=== PATIENT | female | born 1985 ===

== ENCOUNTER 2020-01-28 15:51 | Inpatient (IN) | payer SELFPAY ==
[2020-01-28 17:27] LABS: BLOOD UREA NITROGEN,BUN 9 mg/dL (7.0-18.0); CARBON DIOXIDE,CO2 20.4 mmol/L (21.0-32.0); CHLORIDE,CL 104 mmol/L (98-107); GLUCOSE RANDOM 139 mg/dL (74-106); POTASSIUM,K 3.7 mmol/L (3.5-5.1); SODIUM,NA 135 mmol/L (136-145)
[2020-01-28] MEDS ORDERED: Carboprost Tromethamine 250 MCG/1 ML Amp IM PRN (20:46)
[2020-01-28] MEDS ORDERED: Lidocaine 1% 50 ML MDV INJECT PRN (20:46)
[2020-01-28] MEDS ORDERED: Butorphanol 1 MG/ML SDV IVPUSH PRN (20:46)
[2020-01-28] MEDS ORDERED: Misoprostol 200 MCG Tab PO PRN (20:46)
[2020-01-28] MEDS ORDERED: Nalbuphine 10 MG/1 ML Vial IVPUSH PRN (20:46)
[2020-01-28] MEDS ORDERED: Sodium Chloride 0.9% 10 ML Syringe FLUSH PRN (20:46)
[2020-01-28] MEDS ORDERED: Ondansetron 4 MG/2 ML SDV IVPUSH PRN (20:46)
[2020-01-28] MEDS ORDERED: Methylergonovine 0.2 MG/1 ML Amp IM PRN (20:46)
[2020-01-28] MEDS ORDERED: Sodium Chloride 0.9% 2.5 ML Syringe FLUSH PRN (20:46)
[2020-01-28] MEDS ORDERED: Misoprostol 25 MCG (1/4 of 100 MCG) Tab VAG PRN ×2 (20:46)
[2020-01-28] MEDS ORDERED: Terbutaline 1 MG/ML SDV SUBCUT PRN (20:46)
[2020-01-28] MEDS ORDERED: Misoprostol 25 MCG (1/4 of 100 MCG) Tab PO PRN (20:46)
[2020-01-28] MEDS ORDERED: Sodium Chloride 0.9% 10 ML SDV IV PRN (20:46)
[2020-01-28] MEDS ORDERED: Tranexamic Acid 1,000 MG in Sodium Chloride 0.9% 100 ML IV PRN (20:46)
[2020-01-28] MEDS ORDERED: Water For Irrigation,Sterile 1,000 ML Container IRR PRN (20:46)
[2020-01-28] MEDS ORDERED: Oxytocin/0.9 % Sodium Chloride 30 UNIT/500 ML BAG IV SCH ×2 (21:00)
[2020-01-28] MEDS ORDERED: hydrALAZINE 20 MG/ML SDV IVPUSH PRN (22:21)
[2020-01-28] MEDS ORDERED: Labetalol 100 MG/20 ML MDV IVPUSH PRN (22:21)
[2020-01-29] MEDS: Lactated Ringers 1,000 ML IV SCH ×2 (02:17→07:51)
[2020-01-29] MEDS ORDERED: Ropivacaine HCl/PF 100 ML ONE (06:45)
[2020-01-29] MEDS ORDERED: fentaNYL 100 MCG/2 ML SDV ONE (06:45)
[2020-01-29] MEDS ORDERED: Ropivacaine 0.2% PF 2 MG/ML 20 ML SDV ONE (06:45)
--- NOTE | 2020-01-29 07:29 | PCM.PREANE ---
Preanesthetic Assessment - Anesthesia/Transfusion/Family Hx Anesthesia History: Prior Anesthesia Without Reaction Family History of Anesthesia Reaction: No Transfusion History: No Prior Transfusion(s) Intubation History: Intubation other than for Surgery in past - Review of Systems General: No Symptoms Pulmonary: No Symptoms Cardiovascular: Other (Hx of elevated BP's.) Gastrointestinal: No Symptoms Neurological: No Symptoms Other: Reports: Anxiety - Physical Assessment NPO Status Date: 01/29/20 NPO Status Time: 06:00 (Clear liquids) Height: 1.63 m Weight: 80.739 kg ASA Class: 2 Mental Status: Alert & Oriented x3 Airway Class: Mallampati = 2 Dentition: Reports: Normal Dentition Thyro-Mental Finger Breadths: 3 Mouth Opening Finger Breadths: 3 ROM/Head Extension: Full Lungs: Clear to Auscultation Cardiovascular: Regular Rate - Lab Values: Laboratory Last Values WBC 9.10 K/uL (4.0-11.0) 01/28/20 16:31 RBC 4.71 M/uL (4.30-5.90) 01/28/20 16:31 Hgb 12.0 g/dL (12.0-16.0) 01/28/20 16:31 Hct 38.0 % (36.0-46.0) 01/28/20 16:31 MCV 80.7 fL (80.0-98.0) 01/28/20 16:31 MCH 25.5 pg (27.0-32.0) L 01/28/20 16:31 MCHC 31.6 g/dL (31.0-37.0) 01/28/20 16:31 RDW Std Deviation 47.5 fl (28.0-62.0) 01/28/20 16:31 RDW Coeff of Aureliano 16 % (11.0-15.0) H 01/28/20 16:31 Plt Count 299 K/uL (150-400) 01/28/20 16:31 MPV 10.70 fL (7.40-12.00) 01/28/20 16:31 Neut % (Auto) 81.0 % (48.0-80.0) H 01/28/20 16:31 Lymph % (Auto) 12.9 % (16.0-40.0) L 01/28/20 16:31 Berg[place] % (Auto) 5.8 % (0.0-15.0) 01/28/20 16:31 Eos % (Auto) 0.2 % (0.0-7.0) 01/28/20 16: Baso % (Auto) 0.1 % (0.0-1.5) 01/28/20 16: Neut # (Auto) 7.4 K/uL (1.4-5.7) H 01/28/20 16: Lymph # (Auto) 1.2 K/uL (0.6-2.4) 01/28/20 16: Berg[place] # (Auto) 0.5 K/uL (0.0-0.8) 01/28/20 16: Eos # (Auto) 0.0 K/uL (0.0-0.7) 01/28/20 16: Baso # (Auto) 0.0 K/uL (0.0-0.1) 01/28/20 16: Nucleated RBC % 0.3 /100WBC 01/28/20 16: Nucleated RBCs # 0 K/uL 01/28/20 16:31 Sodium 135 mmol/L (136-145) L 01/28/20 16:31 Potassium 3.7 mmol/L (3.5-5.1) 01/28/20 16: Chloride 104 mmol/L (98-107) 01/28/20 16: Carbon Dioxide 20.4 mmol/L (21.0-32.0) L 01/28/20 16: BUN 9 mg/dL (7.0-18.0) 01/28/20 16: Creatinine 0.5 mg/dL (0.6-1.0) L 01/28/20 16: Est Cr Clr Drug Dosing TNP 01/28/20 16:31 Estimated GFR (MDRD) > 60.0 ml/min 01/28/20 16:31 Glucose 139 mg/dL (74-106) H 01/28/20 16:31 Uric Acid 3.2 mg/dL (2.6-7.2) 01/28/20 16: Calcium 8.6 mg/dL (8.5-10.1) 01/28/20 16:31 Total Bilirubin 0.2 mg/dL (0.2-1.0) 01/28/20 16:31 AST 16 IU/L (15-37) 01/28/20 16:31 ALT 21 IU/L (14-63) 01/28/20 16:31 Alkaline Phosphatase 191 U/L (46-116) H 01/28/20 16:31 Total Protein 6.8 g/dL (6.4-8.2) 01/28/20 16:31 Albumin 2.5 g/dL (3.4-5.0) L 01/28/20 16:31 Globulin 4.3 g/dL (2.6-4.0) H 01/28/20 16:31 Albumin/Globulin Ratio 0.6 (0.9-1.6) L 01/28/20 16:31 Ur Random Creatinine 103.9 mg/dL 01/28/20 17:55 U Random Total Protein 42.3 mg/dL (<11.9) H 01/28/20 17:55 Protein/Creatinin Ratio 0.4 01/28/20 17:55 Blood Type O POSITIVE 01/28/20 16:31 Antibody Screen NEGATIVE 01/28/20 16:31 - Allergies Allergies/Adverse Reactions: Allergies Allergy/AdvReac Type Severity Reaction Status Date / Time No Known Allergies Allergy Verified 10/06/15 01:47 - Blood Blood Available: No Product(s) Available: None - Anesthesia Plan Free Text/Narrative:: Discussed through . Understands, permit signed, wishes to proceed. - Acknowledgements Anesthesia Type Planned: Epidural Pt an Appropriate Candidate for the Planned Anesthesia: Yes Alternatives and Risks of Anesthesia Discussed w Pt/Guardian: Yes Pt/Guardian Understands and Agrees with Anesthesia Plan: Yes Additional Comments: Acceptable candidate. Will dose slowly due to elevated BP. 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 Smoking Status *Q: Never Smoker Second Hand Smoke Exposure: No Recreational Drug Use History: No - HOME MEDS Home Medications: Home Meds Vit 90/Iron Fum/Folic [ Formula] 1 each PO DAILY 10/06/15 [ History] - CURRENT (IN HOUSE) MEDS Current Meds: Current Medications Butorphanol Tartrate (Stadol) 1 mg IVPUSH Q1H PRN PRN Reason: Pain Carboprost Tromethamine (Hemabate Ds) 250 mcg IM ASDIRECTED PRN PRN Reason: Post Hemorrhage Hydralazine HCl (Apresoline) 5 mg IVPUSH Q20M PRN PRN Reason: Hypertension Tranexamic Acid 1,000 mg/ (Sodium Chloride) 110 mls @ 660 mls/hr IV ONETIME PRN PRN Reason: Bleeding Lactated Ringer's (Ringers, Lactated) 1,000 mls @ 150 mls/hr IV ASDIRECTED A[place]EN Last Admin: 01/29/20 02:17 Dose: 150 mls/hr Oxytocin/Sodium Chloride (Oxytocin 30 Unit/500 Ml-Ns) 30 unit in 500 mls @ 555 mls/hr IV TITRATE [place] Oxytocin/Sodium Chloride (Oxytocin 30 Unit/500 Ml-Ns) 30 unit in 500 mls @ 2 mls/hr IV TITRATE A[place]EN; Protocol Last Titration: 01/29/20 04:53 Dose: 8 munits/min, 8 mls/hr Labetalol HCl (Normodyne) 20 mg IVPUSH Q10M PRN; Protocol PRN Reason: Hypertension Lidocaine HCl (Xylocaine 1%) 50 ml INJECT ONETIME PRN PRN Reason: Laceration repair Methylergonovine Maleate (Methergine) 0.2 mg IM ASDIRECTED PRN PRN Reason: Post Hemorrhage Misoprostol (Cytotec) 200 mcg PO ONETIME PRN PRN Reason: Post Hemorrhage Misoprostol (Cytotec) 25 mcg VAG ONETIME PRN PRN Reason: Cervical Ripening Last Admin: 01/28/20 21:45 Dose: 25 mcg Misoprostol (Cytotec) 25 mcg VAG Q4H PRN PRN Reason: Cervical Ripening Nalbuphine HCl (Nubain) 10 mg IVPUSH Q1H PRN PRN Reason: Pain (severe 7-10) Ondansetron HCl (Zofran) 4 mg IVPUSH Q4H PRN PRN Reason: Nausea/Vomiting Sodium Chloride (Saline Flush) 10 ml FLUSH ASDIRECTED PRN PRN Reason: Keep Vein Open Sodium Chloride (Saline Flush) 2.5 ml FLUSH ASDIRECTED PRN PRN Reason: Keep Vein Open Sodium Chloride (Normal Saline) 10 ml IV ASDIRECTED PRN PRN Reason: IV Use Sterile Water (Sterile Water For Irrigation) 1,000 ml IRR ASDIRECTED PRN PRN Reason: delivery Terbutaline Sulfate (Brethine) 0.25 mg SUBCUT ASDIRECTED PRN PRN Reason: Tacysystole Discontinued Medications Fentanyl (Sublimaze) Confirm Administered Dose 100 mcg .ROUTE .STK-MED ONE Stop: 01/29/20 06:46 Ropivacaine (Naropin 0.2%) Confirm Administered Dose 100 mls @ as directed .ROUTE .STK-MED ONE Stop: 01/29/20 06:46 Ropivacaine (Naropin 0.2%) Confirm Administered Dose 20 ml .ROUTE .STK-MED ONE Stop: 01/29/20 06:46
--- NOTE | 2020-01-29 07:54 | PCM.SN ---
- Free Text/Narrative Note: Requested for Labor Epidural , 37.5 weeks. Active labor, on Pitocin, pain 7 /10. Fluid bolus in progress. Discussed with via . ? answered. Permit signed. Procedure without issues. Pain 110 following bolus. Infusion started @ 07:40. VSS. FHT good. Tolerated well.
--- NOTE | 2020-01-29 16:22 | PCM.DEL ---
L & D Note - General Info Date of Service: 01/29/20 - Delivery Note Labor: Augmented by Oxytocin Delivery Outcome: Livebirth Delivery Method: Spontaneous Vaginal Delivery-Single Presentation: Left Occiput Anterior (GABRIELE) Nuchal Cord: None Anesthesia Type: Epidural Episiotomy Type: None Laceration: None Cord: 3 Vessels Estimated Blood Loss: 300 Resuscitation Needed: No Score 1 min: 8 Score 5 min: 9 Post Delivery Events: Shoulder Dystocia Second Stage Interventions: Reports: Pushing, McRobert's Position Delivery Comments (Free Text/Narrative):: Live Male delivered at 340pm weight 4060g Patient with shoulder dystocia After the delivery of the head at 1539 , turtle sign noted the McRobert and suprapubic maneuver done and released the shoulder time to delivery of body 340pm - General Info Date of Service: 01/29/20 - Patient Data Weight - Most Recent: 80.739 kg Lab Results Last 24 Hours: Laboratory Results - last 24 hr 01/28/20 01/28/20 01/28/20 Range/Units 16:31 16:31 16:31 WBC 9.10 (4.0-11.0) K/uL RBC 4.71 (4.30-5.90) M/uL Hgb 12.0 (12.0-16.0) g/dL Hct 38.0 (36.0-46.0) % MCV 80.7 (80.0-98.0) fL MCH 25.5 L (27.0-32.0) pg MCHC 31.6 (31.0-37.0) g/dL RDW Std Deviation 47.5 (28.0-62.0) fl RDW Coeff of Aureliano 16 H (11.0-15.0) % Plt Count 299 (150-400) K/uL MPV 10.70 (7.40-12.00) fL Neut % (Auto) 81.0 H (48.0-80.0) % Lymph % (Auto) 12.9 L (16.0-40.0) % Davie % (Auto) 5.8 (0.0-15.0) % Eos % (Auto) 0.2 (0.0-7.0) % Baso % (Auto) 0.1 (0.0-1.5) % Neut # (Auto) 7.4 H (1.4-5.7) K/uL Lymph # (Auto) 1.2 (0.6-2.4) K/uL Davie # (Auto) 0.5 (0.0-0.8) K/uL Eos # (Auto) 0.0 (0.0-0.7) K/uL Baso # (Auto) 0.0 (0.0-0.1) K/uL Nucleated RBC % 0.3 /100WBC Nucleated RBCs # 0 K/uL Sodium 135 L (136-145) mmol/L Potassium 3.7 (3.5-5.1) mmol/L Chloride 104 (98-107) mmol/L Carbon Dioxide 20.4 L (21.0-32.0) mmol/L BUN 9 (7.0-18.0) mg/dL Creatinine 0.5 L (0.6-1.0) mg/dL Est Cr Clr Drug Dosing TNP Estimated GFR (MDRD) > 60.0 ml/min Glucose 139 H (74-106) mg/dL Uric Acid 3.2 (2.6-7.2) mg/dL Calcium 8.6 (8.5-10.1) mg/dL Total Bilirubin 0.2 (0.2-1.0) mg/dL AST 16 (15-37) IU/L ALT 21 (14-63) IU/L Alkaline Phosphatase 191 H (46-116) U/L Total Protein 6.8 (6.4-8.2) g/dL Albumin 2.5 L (3.4-5.0) g/dL Globulin 4.3 H (2.6-4.0) g/dL Albumin/Globulin Ratio 0.6 L (0.9-1.6) Ur Random Creatinine mg/dL U Random Total Protein (<11.9) mg/dL Protein/Creatinin Ratio Blood Type O POSITIVE Antibody Screen NEGATIVE 01/28/20 Range/Units 17:55 WBC (4.0-11.0) K/uL RBC (4.30-5.90) M/uL Hgb (12.0-16.0) g/dL Hct (36.0-46.0) % MCV (80.0-98.0) fL MCH (27.0-32.0) pg MCHC (31.0-37.0) g/dL RDW Std Deviation (28.0-62.0) fl RDW Coeff of Aureliano (11.0-15.0) % Plt Count (150-400) K/uL MPV (7.40-12.00) fL Neut % (Auto) (48.0-80.0) % Lymph % (Auto) (16.0-40.0) % Davie % (Auto) (0.0-15.0) % Eos % (Auto) (0.0-7.0) % Baso % (Auto) (0.0-1.5) % Neut # (Auto) (1.4-5.7) K/uL Lymph # (Auto) (0.6-2.4) K/uL Davie # (Auto) (0.0-0.8) K/uL Eos # (Auto) (0.0-0.7) K/uL Baso # (Auto) (0.0-0.1) K/uL Nucleated RBC % /100WBC Nucleated RBCs # K/uL Sodium (136-145) mmol/L Potassium (3.5-5.1) mmol/L Chloride (98-107) mmol/L Carbon Dioxide (21.0-32.0) mmol/L BUN (7.0-18.0) mg/dL Creatinine (0.6-1.0) mg/dL Est Cr Clr Drug Dosing Estimated GFR (MDRD) ml/min Glucose (74-106) mg/dL Uric Acid (2.6-7.2) mg/dL Calcium (8.5-10.1) mg/dL Total Bilirubin (0.2-1.0) mg/dL AST (15-37) IU/L ALT (14-63) IU/L Alkaline Phosphatase (46-116) U/L Total Protein (6.4-8.2) g/dL Albumin (3.4-5.0) g/dL Globulin (2.6-4.0) g/dL Albumin/Globulin Ratio (0.9-1.6) Ur Random Creatinine 103.9 mg/dL U Random Total Protein 42.3 H (<11.9) mg/dL Protein/Creatinin Ratio 0.4 Blood Type Antibody Screen Med Orders - Current: Current Medications Butorphanol Tartrate (Stadol) 1 mg IVPUSH Q1H PRN PRN Reason: Pain Carboprost Tromethamine (Hemabate Ds) 250 mcg IM ASDIRECTED PRN PRN Reason: Post Hemorrhage Hydralazine HCl (Apresoline) 5 mg IVPUSH Q20M PRN PRN Reason: Hypertension Tranexamic Acid 1,000 mg/ (Sodium Chloride) 110 mls @ 660 mls/hr IV ONETIME PRN PRN Reason: Bleeding Lactated Ringer's (Ringers, Lactated) 1,000 mls @ 150 mls/hr IV ASDIRECTED [place]EN Last Admin: 01/29/20 07:51 Dose: 150 mls/hr Oxytocin/Sodium Chloride (Oxytocin 30 Unit/500 Ml-Ns) 30 unit in 500 mls @ 555 mls/hr IV TITRATE [place] Oxytocin/Sodium Chloride (Oxytocin 30 Unit/500 Ml-Ns) 30 unit in 500 mls @ 2 mls/hr IV TITRATE [place]; Protocol Last Titration: 01/29/20 15:59 Dose: 999 munits/min, 999 mls/hr Labetalol HCl (Normodyne) 20 mg IVPUSH Q10M PRN; Protocol PRN Reason: Hypertension Lidocaine HCl (Xylocaine 1%) 50 ml INJECT ONETIME PRN PRN Reason: Laceration repair Methylergonovine Maleate (Methergine) 0.2 mg IM ASDIRECTED PRN PRN Reason: Post Hemorrhage Misoprostol (Cytotec) 200 mcg PO ONETIME PRN PRN Reason: Post Hemorrhage Misoprostol (Cytotec) 25 mcg VAG ONETIME PRN PRN Reason: Cervical Ripening Last Admin: 01/28/20 21:45 Dose: 25 mcg Misoprostol (Cytotec) 25 mcg VAG Q4H PRN PRN Reason: Cervical Ripening Nalbuphine HCl (Nubain) 10 mg IVPUSH Q1H PRN PRN Reason: Pain (severe 7-10) Ondansetron HCl (Zofran) 4 mg IVPUSH Q4H PRN PRN Reason: Nausea/Vomiting Sodium Chloride (Saline Flush) 10 ml FLUSH ASDIRECTED PRN PRN Reason: Keep Vein Open Sodium Chloride (Saline Flush) 2.5 ml FLUSH ASDIRECTED PRN PRN Reason: Keep Vein Open Sodium Chloride (Normal Saline) 10 ml IV ASDIRECTED PRN PRN Reason: IV Use Sterile Water (Sterile Water For Irrigation) 1,000 ml IRR ASDIRECTED PRN PRN Reason: delivery Terbutaline Sulfate (Brethine) 0.25 mg SUBCUT ASDIRECTED PRN PRN Reason: Tacysystole Discontinued Medications Fentanyl (Sublimaze) Confirm Administered Dose 100 mcg .ROUTE .STK-MED ONE Stop: 01/29/20 06:46 Ropivacaine (Naropin 0.2%) Confirm Administered Dose 100 mls @ as directed .ROUTE .STK-MED ONE Stop: 01/29/20 06:46 Ropivacaine (Naropin 0.2%) Confirm Administered Dose 20 ml .ROUTE .STK-MED ONE Stop: 01/29/20 06:46 - Problem List & Annotations (1) Shoulder dystocia during labor and delivery, delivered SNOMED Code(s): 006283336, 269237078 Code(s): O66.0 - OBSTRUCTED LABOR DUE TO SHOULDER DYSTOCIA Status: Acute Current Visit: Yes - Problem List Review Problem List Initiated/Reviewed/Updated: Yes - Assessment Assessment:: 34yo P5 s/p PPDO
[2020-01-29] MEDS ORDERED: Ibuprofen 400 MG Tab PO PRN (16:24)
[2020-01-29] MEDS ORDERED: Witch Hazel Medicated Pads 40/Jar TOP PRN (16:24)
[2020-01-29] MEDS ORDERED: oxyCODONE 5 MG Tab PO PRN (16:24)
[2020-01-29] MEDS ORDERED: Acetaminophen 500 MG Tab PO PRN (16:24)
[2020-01-29] MEDS ORDERED: Lanolin 100% Cream 7 GM Tube TOP PRN (16:24)
[2020-01-29] MEDS ORDERED: Benzocaine/Menthol 20%-0.5% Spray 78 GM Cannister TOP PRN (16:24)
[2020-01-29] MEDS ORDERED: Docusate Sodium 100 MG Cap PO PRN (16:24)
[2020-01-29] MEDS ORDERED: Bisacodyl 10 MG Supp RECTAL PRN (16:24)
[2020-01-29] MEDS: Ibuprofen 800 MG Tab PO PRN (17:04)
[2020-01-29] MEDS: Acetaminophen 500 MG Tab PO PRN (17:05)
[2020-01-30] MEDS: Ibuprofen 800 MG Tab PO PRN (00:31)
[2020-01-30] MEDS: Acetaminophen 500 MG Tab PO PRN (05:26)
--- NOTE | 2020-01-30 07:57 | PCM.PNPP ---
- General Info Date of Service: 01/30/20 Subjective Update: 34yo p5 s/p PPD1 Denies any complains, , normal lochia Functional Status: Reports: Pain Controlled, Tolerating Diet, Ambulating, Urinating - Review of Systems General: Reports: No Symptoms HEENT: Reports: No Symptoms Pulmonary: Reports: No Symptoms Cardiovascular: Reports: No Symptoms Gastrointestinal: Reports: No Symptoms Genitourinary: Reports: No Symptoms Musculoskeletal: Reports: No Symptoms Skin: Reports: No Symptoms Neurological: Reports: No Symptoms Psychiatric: Reports: No Symptoms - General Info Date of Service: 01/30/20 - Patient Data Vital Signs - Most Recent: Last Vital Signs Temp 36.2 C 01/30/20 04:41 Pulse 72 01/30/20 04:41 Resp 14 01/30/20 04:41 BP 145/93 H 01/30/20 04:41 Pulse Ox 98 01/30/20 04:41 Weight - Most Recent: 80.739 kg I&O - Last 24 Hours: Intake & Output 01/29/20 01/30/20 01/30/20 22:59 06:59 14:59 Output Total 600 Balance -600 Lab Results - Last 24 Hours: Laboratory Results - last 24 hr 01/29/20 01/30/20 Range/Units 15:40 05:43 Hgb 10.0 L (12.0-16.0) g/dL Hct 31.3 L (36.0-46.0) % Cord ABG pH 7.354 (7.18-7.38) Cord ABG Base Excess -3 (-10--2) Cord VBG pH 7.356 (7.25-7.45) Cord VBG Base Excess -5 (-10--2) Med Orders - Current: Current Medications Acetaminophen (Tylenol Extra Strength) 500 mg PO Q4H PRN PRN Reason: Pain Acetaminophen (Tylenol Extra Strength) 1,000 mg PO Q4H PRN PRN Reason: Pain Last Admin: 01/30/20 05:26 Dose: 1,000 mg Benzocaine/Menthol (Dermoplast Pain Relief 20%-0.5% Manzanita) 78 gm TOP ASDIRECTED PRN PRN Reason: Perineal Comfort Measure Last Admin: 01/29/20 17:07 Dose: 1 canister Bisacodyl (Dulcolax) 10 mg RECTAL ONETIME PRN PRN Reason: Constipation Butorphanol Tartrate (Stadol) 1 mg IVPUSH Q1H PRN PRN Reason: Pain Carboprost Tromethamine (Hemabate Ds) 250 mcg IM ASDIRECTED PRN PRN Reason: Post Hemorrhage Docusate Sodium (Colace) 100 mg PO BID PRN PRN Reason: Constipation Last Admin: 01/29/20 17:06 Dose: 100 mg Emollient Ointment (Lansinoh Hpa) 0 gm TOP ASDIRECTED PRN PRN Reason: Sore Nipples Last Admin: 01/29/20 17:06 Dose: 7 gm Hydralazine HCl (Apresoline) 5 mg IVPUSH Q20M PRN PRN Reason: Hypertension Tranexamic Acid 1,000 mg/ (Sodium Chloride) 110 mls @ 660 mls/hr IV ONETIME PRN PRN Reason: Bleeding Lactated Ringer's (Ringers, Lactated) 1,000 mls @ 150 mls/hr IV ASDIRECTED [place] Last Admin: 01/29/20 07:51 Dose: 150 mls/hr Oxytocin/Sodium Chloride (Oxytocin 30 Unit/500 Ml-Ns) 30 unit in 500 mls @ 555 mls/hr IV TITRATE [place] Oxytocin/Sodium Chloride (Oxytocin 30 Unit/500 Ml-Ns) 30 unit in 500 mls @ 2 mls/hr IV TITRATE [place]; Protocol Last Titration: 01/29/20 15:59 Dose: 999 munits/min, 999 mls/hr Ibuprofen (Motrin) 400 mg PO Q4H PRN PRN Reason: Pain Ibuprofen (Motrin) 800 mg PO Q6H PRN PRN Reason: Pain Last Admin: 01/30/20 00:31 Dose: 800 mg Labetalol HCl (Normodyne) 20 mg IVPUSH Q10M PRN; Protocol PRN Reason: Hypertension Lidocaine HCl (Xylocaine 1%) 50 ml INJECT ONETIME PRN PRN Reason: Laceration repair Methylergonovine Maleate (Methergine) 0.2 mg IM ASDIRECTED PRN PRN Reason: Post Hemorrhage Misoprostol (Cytotec) 200 mcg PO ONETIME PRN PRN Reason: Post Hemorrhage Misoprostol (Cytotec) 25 mcg VAG ONETIME PRN PRN Reason: Cervical Ripening Last Admin: 01/28/20 21:45 Dose: 25 mcg Misoprostol (Cytotec) 25 mcg VAG Q4H PRN PRN Reason: Cervical Ripening Nalbuphine HCl (Nubain) 10 mg IVPUSH Q1H PRN PRN Reason: Pain (severe 7-10) Ondansetron HCl (Zofran) 4 mg IVPUSH Q4H PRN PRN Reason: Nausea/Vomiting Oxycodone HCl (Oxycodone) 5 mg PO Q2H PRN PRN Reason: Pain Sodium Chloride (Saline Flush) 10 ml FLUSH ASDIRECTED PRN PRN Reason: Keep Vein Open Sodium Chloride (Saline Flush) 2.5 ml FLUSH ASDIRECTED PRN PRN Reason: Keep Vein Open Sodium Chloride (Normal Saline) 10 ml IV ASDIRECTED PRN PRN Reason: IV Use Sterile Water (Sterile Water For Irrigation) 1,000 ml IRR ASDIRECTED PRN PRN Reason: delivery Terbutaline Sulfate (Brethine) 0.25 mg SUBCUT ASDIRECTED PRN PRN Reason: Tacysystole Witch Bharath (Tucks) 1 pad TOP ASDIRECTED PRN PRN Reason: comfort care Last Admin: 01/29/20 17:07 Dose: 1 tub Discontinued Medications Fentanyl (Sublimaze) Confirm Administered Dose 100 mcg .ROUTE .STK-MED ONE Stop: 01/29/20 06:46 Ropivacaine (Naropin 0.2%) Confirm Administered Dose 100 mls @ as directed .ROUTE .STK-MED ONE Stop: 01/29/20 06:46 Ropivacaine (Naropin 0.2%) Confirm Administered Dose 20 ml .ROUTE .STK-MED ONE Stop: 01/29/20 06:46 - Interaction Support Person: - Recovery Exam Fundal Tone: Firm Fundal Level: 1 Fingerbreadths Below Umbilicus Fundal Placement: Midline Lochia Amount: Small Lochia Color: Rubra/Red Perineum Description: Intact, Minimal Bruising/Swelling Bladder Status: Voiding Urinary Elimination: Voided - Exam General: Alert HEENT: Pupils Equal Neck: Supple Lungs: Clear to Auscultation Cardiovascular: Regular Rate, Regular Rhythm GI/Abdominal Exam: Normal Bowel Sounds Extremities: Normal Inspection Neurological: No New Focal Deficit - Problem List & Annotations (1) Shoulder dystocia during labor and delivery, delivered SNOMED Code(s): 673739462, [id number] Code(s): O66.0 - OBSTRUCTED LABOR DUE TO SHOULDER DYSTOCIA Status: Acute Current Visit: Yes - Problem List Review Problem List Initiated/Reviewed/Updated: Yes - My Orders Last 24 Hours: My Active Orders 01/29/20 16:24 Acetaminophen [Tylenol Extra Strength] 1,000 mg PO Q4H PRN Acetaminophen [Tylenol Extra Strength] 500 mg PO Q4H PRN Benzocaine/Menthol [Dermoplast Pain Relief 20%-0.5% [place]] 78 gm TOP ASDIRECTED PRN Docusate Sodium [Colace] 100 mg PO BID PRN Ibuprofen [Motrin] 400 mg PO Q4H PRN Ibuprofen [Motrin] 800 mg PO Q6H PRN Lanolin [Lansinoh HPA] See Dose Instructions TOP ASDIRECTED PRN bisacodyL [Dulcolax] 10 mg RECTAL ONETIME PRN oxyCODONE 5 mg PO Q2H PRN witch Bharath [Tucks] 1 pad TOP ASDIRECTED PRN Resuscitation Status Routine 01/29/20 16:25 Patient Status [ADT] Routine May Shower [RC] ASDIRECTED Up ad Kathleen [RC] ASDIRECTED Vital Signs [RC] PER UNIT ROUTINE Assess Lochia [WOMSER] Per Unit Routine Assess Uterine Involution [WOMSER] Per Unit Routine Peripheral IV Discontinue [OM.PC] Routine 01/29/20 Dinner Regular Diet [DIET] - Assessment Assessment:: 34yo P5 s/p PPD1, Normal lochia , - Plan Plan:: Discharge home Routine care
--- NOTE | 2020-01-30 08:08 | PCM48HPAN ---
Post Anesthesia Note - EVALUATION WITHIN 48HRS OF ANESTHETIC Vital Signs in Normal Range: Yes Patient Participated in Evaluation: Yes Respiratory Function Stable: Yes Airway Patent: Yes Cardiovascular Function Stable: Yes Hydration Status Stable: Yes Pain Control Satisfactory: Yes Nausea and Vomiting Control Satisfactory: Yes Mental Status Recovered: Yes Vital Signs: Last Vital Signs Temp 97.1 F 01/30/20 04:41 Pulse 72 01/30/20 04:41 Resp 14 01/30/20 04:41 BP 145/93 H 01/30/20 04:41 Pulse Ox 98 01/30/20 04:41
[2020-01-30 16:42] VITALS: BP 147/83; PULSE 77
--- NOTE | 2020-01-31 00:41 | OR ---
SURGEON: ANH KURTZ DATE OF PROCEDURE: 01/29/2020 PREOPERATIVE DIAGNOSIS: 34-year-old, 5, para 4, at 37 weeks 6 days, admitted for induction of labor secondary to gestational hypertension. POSTOPERATIVE DIAGNOSES: 34-year-old, 5, para 4, at 37 weeks 6 days, admitted for induction of labor secondary to gestational hypertension and shoulder dystocia status post. PROCEDURE: Vaginal delivery complicated by shoulder dystocia. ESTIMATED BLOOD LOSS: 300 mL. IV FLUIDS: Pitocin running. NOTES AND FINDINGS: A live male delivered at 1540, score is 8 and 9. Weight was 4060 g. BRIEF HISTORY: She is a 34-year-old, , 37 weeks 6 days, who came in complaining of contractions. She was noted to have elevated blood pressures, and she was kept for induction of labor. PIH labs were done, which was normal. DESCRIPTION OF PROCEDURE: Induction of labor and augmentation of labor was done with Pitocin. The patient made change. She was AROM'd and clear fluid was noted. She was on Pitocin. She became fully dilated. With the patient fully dilated, she was encouraged to push. After delivering the head, a turtle sign was noted, so Markos was done and suprapubic was done. The shoulder was released without any difficulty. Then, the body was delivered. was placed on the maternal abdomen. The cord was clamped and cut. The placenta was delivered via controlled cord traction. The perineum was inspected, noted to be intact. The patient tolerated the procedure well. All instrument and pad counts were correct x2. The patient was left in Labor and Delivery room in stable condition. CAROLYN / JEFE /[id number]
== END 2020-01-30 18:30 | disposition home or self-care (01) | DRG 807 ==
LOC: MW.OB 15:51 → MW.OBCHECK 15:51 → MW.OB 20:46 → MW.OBCHECK 20:46 → OBSVTOIN 01-29 16:25 → MW.OB 01-29 18:28
PROVIDERS: ADMIT Obstetrics & Gynecology; ATTEND Obstetrics & Gynecology
PROC: 10E0XZZ Delivery of Products of Conception, External Approach (ICD-10-PCS; principal; 2020-01-29)
PROC: 10907ZC Drainage of Amniotic Fluid, Therapeutic from Products of Conception, Via Natural or Artificial Opening (ICD-10-PCS; 2020-01-29)
PROC: 3E0R3BZ Introduction of Anesthetic Agent into Spinal Canal, Percutaneous Approach (ICD-10-PCS; 2020-01-29)
DX: O13.4 Gestational [pregnancy-induced] hypertension without significant proteinuria, complicating childbirth (principal); Z37.0 Single live birth; O66.0 Obstructed labor due to shoulder dystocia; Z3A.37 37 weeks gestation of pregnancy
CPT/HCPCS: 36415; 51702; 59025; 59409; 80053; 82570; 82803; 84156; 84550; 85014; 85018; 85025; 86592; 86593; 86850; 86900; 86901; A9270-GY; J2590; J7120

== ENCOUNTER 2020-02-10 16:07 | Inpatient (IN) | payer SELFPAY ==
[2020-02-10] MEDS ORDERED: Sodium Chloride 0.9% 10 ML Syringe FLUSH PRN (16:16)
[2020-02-10] MEDS ORDERED: Calcium Gluconate 10% 1 GM/10 ML SDV IV PRN (16:16)
[2020-02-10] MEDS ORDERED: Sodium Chloride 0.9% 2.5 ML Syringe FLUSH PRN (16:16)
[2020-02-10] MEDS ORDERED: Sodium Chloride 0.9% 10 ML SDV IV PRN (16:16)
[2020-02-10] MEDS ORDERED: Magnesium Sulfate/Water 4 GM in Premix Bag 1 BAG IV ONE (16:16)
[2020-02-10] MEDS ORDERED: hydrALAZINE 20 MG/ML SDV IVPUSH PRN (16:16)
[2020-02-10] MEDS ORDERED: Ibuprofen 600 MG Tab PO PRN (16:27)
[2020-02-10] MEDS ORDERED: Acetaminophen 500 MG Tab PO PRN (16:27)
[2020-02-10] MEDS ORDERED: Lactated Ringers 1,000 ML IV SCH (16:45)
[2020-02-10 17:37] LABS: BLOOD UREA NITROGEN,BUN 13 mg/dL (7.0-18.0); CARBON DIOXIDE,CO2 24.9 mmol/L (21.0-32.0); CHLORIDE,CL 102 mmol/L (98-107); GLUCOSE RANDOM 86 mg/dL (74-106); POTASSIUM,K 3.9 mmol/L (3.5-5.1); SODIUM,NA 138 mmol/L (136-145)
--- NOTE | 2020-02-10 17:41 | PCM.HP.2 ---
H&P History of Present Illness - General Date of Service: 02/10/20 Admit Problem/Dx: Admission Diagnosis/Problem Admission Diagnosis/Problem Hypertension, condition or complication Source of Information: Patient History Limitations: Reports: Language Barrier - History of Present Illness Initial Comments - Free Text/Narative: 34 yo status 01/30/20 who was admitted/induced for gestational hypertension. She had returned to OB clinic today for BP check given gestational hypertension. She denies headaches or visual changes. No chest pain or shortness of breath. Infant is doing well. Her lochia is minimal. She denies fever or chills. 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 Denies: Chest Pain, Palpitations, Lightheadedness Gastrointestinal: Reports: No Symptoms Genitourinary: Reports: No Symptoms Musculoskeletal: Reports: No Symptoms Skin: Reports: No Symptoms Psychiatric: Reports: No Symptoms Neurological: Reports: Headache (mild). Denies: Confusion, Dizziness, Numbness , Paresthesia, Seizure, Tingling, Tremors, Weakness Hematologic/Lymphatic: Reports: No Symptoms Immunologic: Reports: No Symptoms Exam - Exam Exam: See Below - Vital Signs Weight: 70.987 kg - Exam General: Alert, Oriented, 4 Neck: Trachea Midline Lungs: Clear to Auscultation, Normal Respiratory Effort Cardiovascular: Regular Rate, Regular Rhythm GI/Abdominal Exam: Normal Bowel Sounds, Soft Back Exam: No: CVA Tenderness (L), CVA Tenderness (R) Extremities: Pedal Edema (trace). No: Misael's Sign Skin: Warm, Dry, Intact Neurological: Cranial Nerves Intact, Reflexes Equal Bilateral Neuro Extensive - Mental Status: Alert, Oriented x3 Neuro Extensive - Motor, Sensory, Reflexes: CN II-XII Intact, Normal Reflexes DTR: 2+: Bicep (L), Bicep (R), Patella (L), Patella (R) Psychiatric: Alert, Normal Affect - Patient Data Lab Results Last 24 hrs: Laboratory Results - last 24 hr 02/10/20 02/10/20 Range/Units 16:38 17:04 WBC 12.99 H (4.0-11.0) K/uL RBC 5.08 (4.30-5.90) M/uL Hgb 13.2 (12.0-16.0) g/dL Hct 41.6 (36.0-46.0) % MCV 81.9 (80.0-98.0) fL MCH 26.0 L (27.0-32.0) pg MCHC 31.7 (31.0-37.0) g/dL RDW Std Deviation 48.7 (28.0-62.0) fl RDW Coeff of Aureliano 16 H (11.0-15.0) % Plt Count 507 H (150-400) K/uL MPV 9.60 (7.40-12.00) fL Nucleated RBC % 0.0 /100WBC Nucleated RBCs # 0 K/uL Urine Color YELLOW Urine Appearance CLEAR Urine pH 6.5 (5.0-8.0) Ur Specific [place] 1.015 (1.001-1.035) Urine Protein NEGATIVE (NEGATIVE) mg/dL Urine Glucose (UA) NEGATIVE (NEGATIVE) mg/dL Urine Ketones NEGATIVE (NEGATIVE) mg/dL Urine Occult Blood TRACE-INTACT H (NEGATIVE) Urine Nitrite NEGATIVE (NEGATIVE) Urine Bilirubin NEGATIVE (NEGATIVE) Urine Urobilinogen 1.0 (<2.0) EU/dL Ur Leukocyte Esterase NEGATIVE (NEGATIVE) Urine RBC 1-2 (0-2/HPF) Urine WBC 0-1 (0-5/HPF) Ur Epithelial Cells RARE (NONE-FEW) Urine Bacteria RARE (NEGATIVE) Result Diagrams: 02/10/20 17:04 - Problem List (1) Preeclampsia in period SNOMED Code(s): 243011992, 286658352 ICD Code: O14.95 - UNSPECIFIED PRE-ECLAMPSIA, COMPLICATING THE PUERPERIUM Status: Acute Current Visit: Yes Problem List Initiated/Reviewed/Updated: Yes Orders Last 24hrs: Active Orders 24 hr Category Date Time Status Patient Status [ADT] Routine ADT 02/10/20 16:16 Active Antiembolic Devices [RC] PER UNIT ROUTINE Care 02/10/20 16:28 Active Bedrest Bathroom Privileges [RC] ASDIRECTED Care 02/10/20 16:29 Active Bedrest [RC] ASDIRECTED Care 02/10/20 16:16 Active Communication Order [RC] PRN Care 02/10/20 16:16 Active Communication Order [RC] PRN Care 02/10/20 16:16 Active Equipment to Bedside [RC] PRN Care 02/10/20 16:19 Active Height and Weight [RC] DAILY Care 02/10/20 16:16 Active Intake and Output [RC] QSHIFT Care 02/10/20 16:16 Active Notify Provider Status Change [RC] ASDIRECTED Care 02/10/20 16:19 Active Notify Provider [RC] PRN Care 02/10/20 16:16 Active Oxygen Therapy [RC] PRN Care 02/10/20 16:16 Active Vital Signs [RC] ASDIRECTED Care 02/10/20 16:16 Active Fluid Restriction [DIET] Diet 02/10/20 Dinner Active COMPREHENSIVE METABOLIC PN,CMP [CHEM] Routine Lab 02/10/20 17:04 Received URIC ACID [CHEM] Routine Lab 02/10/20 17:04 Received Acetaminophen [Tylenol Extra Strength] Med 02/10/20 16:27 Active 1,000 mg PO Q4H PRN Calcium Gluconate Med 02/10/20 16:16 Active 1 gm IV ASDIRECTED PRN Ibuprofen [Motrin] Med 02/10/20 16:27 Active 600 mg PO Q6H PRN Labetalol [Normodyne] Med 02/10/20 16:16 Active 20 mg IVPUSH Q10M PRN Lactated Ringers [Ringers, Lactated] 1,000 ml Med 02/10/20 16:45 Active IV ASDIRECTED Magnesium Sulfate/Water [Magnesium Sulfate in Water Med 02/10/20 16:30 Active Premix] 20 gm in 500 ml IV ASDIRECTED Sodium Chloride 0.9% [Normal Saline] Med 02/10/20 16:16 Active 10 ml IV ASDIRECTED PRN Sodium Chloride 0.9% [Saline Flush] Med 02/10/20 16:16 Active 10 ml FLUSH ASDIRECTED PRN Sodium Chloride 0.9% [Saline Flush] Med 02/10/20 16:16 Active 2.5 ml FLUSH ASDIRECTED PRN hydrALAZINE [Apresoline] [facility] 02/10/20 16:16 Active 10 mg IVPUSH Q20M PRN Deep Tendon Reflexes [WOMSER] [address] 02/10/20 16:30 Ordered Deep Tendon Reflexes [WOMSER] [facility] 02/10/20 17:30 Ordered Deep Tendon Reflexes [WOMSER] [address] 02/10/20 18:30 Ordered Deep Tendon Reflexes [WOMSER] [address] 02/10/20 19:30 Ordered Deep Tendon Reflexes [WOMSER] [address] 02/10/20 20:30 Ordered Deep Tendon Reflexes [WOMSER] [address] 02/10/20 21:30 Ordered Deep Tendon Reflexes [WOMSER] [address] 02/10/20 22:30 Ordered Deep Tendon Reflexes [WOMSER] [address] 02/10/20 23:30 Ordered Deep Tendon Reflexes [WOMSER] [facility] 02/11/20 00:30 Ordered Deep Tendon Reflexes [WOMSER] [address] 02/11/20 01:30 Ordered Deep Tendon Reflexes [WOMSER] [facility] 02/11/20 02:30 Ordered Deep Tendon Reflexes [WOMSER] [facility] 02/11/20 03:30 Ordered Deep Tendon Reflexes [WOMSER] [facility] 02/11/20 04:30 Ordered Deep Tendon Reflexes [WOMSER] [facility] 02/11/20 05:30 Ordered Deep Tendon Reflexes [WOMSER] [facility] 02/11/20 06:30 Ordered Deep Tendon Reflexes [WOMSER] [facility] 02/11/20 07:30 Ordered Deep Tendon Reflexes [WOMSER] [facility] 02/11/20 08:30 Ordered Deep Tendon Reflexes [WOMSER] [facility] 02/11/20 09:30 Ordered Deep Tendon Reflexes [WOMSER] [facility] 02/11/20 10:30 Ordered Deep Tendon Reflexes [WOMSER] Q1H Ot 02/11/20 11:30 Ordered Deep Tendon Reflexes [WOMSER] Q1H Ot 02/11/20 12:30 Ordered Deep Tendon Reflexes [WOMSER] Q1H Ot 02/11/20 13:30 Ordered Deep Tendon Reflexes [WOMSER] Q1 Ot 02/11/20 14:30 Ordered Deep Tendon Reflexes [WOMSER] Q1 Ot 02/11/20 15:30 Ordered Peripheral IV Insertion Adult [OM.PC] Routine Oth 02/10/20 16:16 Ordered SCD [Sequential Compression Device] [OM.PC] Routine Ot 02/10/20 16:28 Ordered Medication Orders Acetaminophen (Tylenol Extra Strength) 1,000 mg PO Q4H PRN PRN Reason: Pain Calcium Gluconate (Calcium Gluconate) 1 gm IV ASDIRECTED PRN PRN Reason: respiratory distress Hydralazine HCl (Apresoline) 10 mg IVPUSH Q20M PRN PRN Reason: Hypertension Magnesium Sulfate (Magnesium Sulfate In Water Premix) 20 gm in 500 mls @ 50 mls /hr IV ASDIRECTED [place] Lactated Ringer's (Ringers, Lactated) 1,000 mls @ 5 mls/hr IV ASDIRECTED [place] Ibuprofen (Motrin) 600 mg PO Q6H PRN PRN Reason: Pain Labetalol HCl (Normodyne) 20 mg IVPUSH Q10M PRN; Protocol PRN Reason: Hypertension Sodium Chloride (Saline Flush) 10 ml FLUSH ASDIRECTED PRN PRN Reason: Keep Vein Open Sodium Chloride (Saline Flush) 2.5 ml FLUSH ASDIRECTED PRN PRN Reason: Keep Vein Open Sodium Chloride (Normal Saline) 10 ml IV ASDIRECTED PRN PRN Reason: IV Use Assessment/Plan Comment:: Status post 01/30/20 complicated by gestational hypertension preeclampsia Patient is admitted, PIH labs. Begin magnesium prophylaxis and begin antihypertensive regimen (protocol) to help normalize blood pressures, then will transition to oral antihypertensives. Monitor urine output and weight. Patient agrees to plan of care. Anesthesia had to be called to obtain iv sites due to difficulty with placement.
--- NOTE | 2020-02-10 17:55 | PCM.PRNOTE ---
- Free Text/Narrative Note: Anes Note I was called to place IVs on this patient with difficult IV access. I 22 TN was placed in left hand, and a 20 TN was placed in the right hand. Time with patient [id number]. Alcides Aparicio ACETYLENE OPERATOR
[2020-02-10] MEDS: Labetalol 100 MG/20 ML MDV IVPUSH PRN ×2 (17:59→18:28)
[2020-02-10] MEDS: Magnesium Sulfate/Water 20 GM/500 ML BAG IV SCH (18:20)
[2020-02-10] MEDS: Labetalol 100 MG Tab PO SCH (21:19)
[2020-02-11] MEDS ORDERED: Benzocaine/Menthol 20%-0.5% Spray 78 GM Cannister ONE (03:10)
[2020-02-11] MEDS: Magnesium Sulfate/Water 20 GM/500 ML BAG IV SCH (04:12)
[2020-02-11] MEDS: Labetalol 100 MG Tab PO SCH ×2 (09:15→22:35)
--- NOTE | 2020-02-11 09:57 | PCM.DCSUM1 ---
Discharge Summary - Discharge Data Discharge Disposition: Home, Self-Care 01 Condition: Good - Referral to Home Health Primary Care Physician: Michelle Lundberg MD - Discharge Plan Home Medications: Home Meds Acetaminophen [Tylenol Extra Strength] 1 - 2 tab PO PRN 02/10/20 [History] - Patient Data Vitals - Most Recent: Last Vital Signs Temp 97.6 F 02/11/20 09:00 Pulse 58 L 02/11/20 09:15 Resp 18 02/11/20 09:00 BP 114/66 02/11/20 09:15 Pulse Ox 97 02/11/20 09:00 Weight - Most Recent: 156 lb 8 oz I&O - Last 24 hours: Intake & Output 02/10/20 02/11/20 02/11/20 22:59 06:59 14:59 Intake Total 312 789 Output Total 500 650 Balance -188 139 Lab Results - Last 24 hrs: Laboratory Results - last 24 hr 02/10/20 02/10/20 02/10/20 Range/Units 16:38 17:04 17:04 WBC 12.99 H (4.0-11.0) K/uL RBC 5.08 (4.30-5.90) M/uL Hgb 13.2 (12.0-16.0) g/dL Hct 41.6 (36.0-46.0) % MCV 81.9 (80.0-98.0) fL MCH 26.0 L (27.0-32.0) pg MCHC 31.7 (31.0-37.0) g/dL RDW Std Deviation 48.7 (28.0-62.0) fl RDW Coeff of Aureliano 16 H (11.0-15.0) % Plt Count 507 H (150-400) K/uL MPV 9.60 (7.40-12.00) fL Nucleated RBC % 0.0 /100WBC Nucleated RBCs # 0 K/uL Sodium 138 (136-145) mmol/L Potassium 3.9 (3.5-5.1) mmol/L Chloride 102 (98-107) mmol/L Carbon Dioxide 24.9 (21.0-32.0) mmol/L BUN 13 (7.0-18.0) mg/dL Creatinine 0.6 (0.6-1.0) mg/dL Est Cr Clr Drug Dosing 113.01 mL/min Estimated GFR (MDRD) > 60.0 ml/min Glucose 86 (74-106) mg/dL Uric Acid 4.2 (2.6-7.2) mg/dL Calcium 9.5 (8.5-10.1) mg/dL Magnesium (1.8-2.4) mg/dL Total Bilirubin 0.2 (0.2-1.0) mg/dL AST 23 (15-37) IU/L ALT 33 (14-63) IU/L Alkaline Phosphatase 120 H (46-116) U/L Total Protein 8.2 (6.4-8.2) g/dL Albumin 3.4 (3.4-5.0) g/dL Globulin 4.8 H (2.6-4.0) g/dL Albumin/Globulin Ratio 0.7 L (0.9-1.6) Urine Color YELLOW Urine Appearance CLEAR Urine pH 6.5 (5.0-8.0) Ur Specific [place] 1.015 (1.001-1.035) Urine Protein NEGATIVE (NEGATIVE) mg/dL Urine Glucose (UA) NEGATIVE (NEGATIVE) mg/dL Urine Ketones NEGATIVE (NEGATIVE) mg/dL Urine Occult Blood TRACE-INTACT H (NEGATIVE) Urine Nitrite NEGATIVE (NEGATIVE) Urine Bilirubin NEGATIVE (NEGATIVE) Urine Urobilinogen 1.0 (<2.0) EU/dL Ur Leukocyte Esterase NEGATIVE (NEGATIVE) Urine RBC 1-2 (0-2/HPF) Urine WBC 0-1 (0-5/HPF) Ur Epithelial Cells RARE (NONE-FEW) Urine Bacteria RARE (NEGATIVE) 02/10/20 02/11/20 Range/Units 22:32 04:26 WBC (4.0-11.0) K/uL RBC (4.30-5.90) M/uL Hgb (12.0-16.0) g/dL Hct (36.0-46.0) % MCV (80.0-98.0) fL MCH (27.0-32.0) pg MCHC (31.0-37.0) g/dL RDW Std Deviation (28.0-62.0) fl RDW Coeff of Aureliano (11.0-15.0) % Plt Count (150-400) K/uL MPV (7.40-12.00) fL Nucleated RBC % /100WBC Nucleated RBCs # K/uL Sodium (136-145) mmol/L Potassium (3.5-5.1) mmol/L Chloride (98-107) mmol/L Carbon Dioxide (21.0-32.0) mmol/L BUN (7.0-18.0) mg/dL Creatinine (0.6-1.0) mg/dL Est Cr Clr Drug Dosing mL/min Estimated GFR (MDRD) ml/min Glucose (74-106) mg/dL Uric Acid (2.6-7.2) mg/dL Calcium (8.5-10.1) mg/dL Magnesium 6.0 H 6.5 H (1.8-2.4) mg/dL Total Bilirubin (0.2-1.0) mg/dL AST (15-37) IU/L ALT (14-63) IU/L Alkaline Phosphatase (46-116) U/L Total Protein (6.4-8.2) g/dL Albumin (3.4-5.0) g/dL Globulin (2.6-4.0) g/dL Albumin/Globulin Ratio (0.9-1.6) Urine Color Urine Appearance Urine pH (5.0-8.0) Ur Specific [place] (1.001-1.035) Urine Protein (NEGATIVE) mg/dL Urine Glucose (UA) (NEGATIVE) mg/dL Urine Ketones (NEGATIVE) mg/dL Urine Occult Blood (NEGATIVE) Urine Nitrite (NEGATIVE) Urine Bilirubin (NEGATIVE) Urine Urobilinogen (<2.0) EU/dL Ur Leukocyte Esterase (NEGATIVE) Urine RBC (0-2/HPF) Urine WBC (0-5/HPF) Ur Epithelial Cells (NONE-FEW) Urine Bacteria (NEGATIVE) Med Orders - Current: Current Medications Acetaminophen (Tylenol Extra Strength) 1,000 mg PO Q4H PRN PRN Reason: Pain Calcium Gluconate (Calcium Gluconate) 1 gm IV ASDIRECTED PRN PRN Reason: respiratory distress Hydralazine HCl (Apresoline) 10 mg IVPUSH Q20M PRN PRN Reason: Hypertension Magnesium Sulfate (Magnesium Sulfate In Water Premix) 20 gm in 500 mls @ 50 mls /hr IV ASDIRECTED [place] Last Admin: 02/11/20 04:12 Dose: 2 gm/hr, 50 mls/hr Lactated Ringer's (Ringers, Lactated) 1,000 mls @ 5 mls/hr IV ASDIRECTED [facility] Last Admin: 02/10/20 17:54 Dose: 5 mls/hr Ibuprofen (Motrin) 600 mg PO Q6H PRN PRN Reason: Pain Labetalol HCl (Normodyne) 20 mg IVPUSH Q10M PRN; Protocol PRN Reason: Hypertension Last Admin: 02/10/20 18:28 Dose: 40 mg Labetalol HCl (Normodyne) 200 mg PO BID [facility] Last Admin: 02/11/20 09:15 Dose: 200 mg Sodium Chloride (Saline Flush) 10 ml FLUSH ASDIRECTED PRN PRN Reason: Keep Vein Open Sodium Chloride (Saline Flush) 2.5 ml FLUSH ASDIRECTED PRN PRN Reason: Keep Vein Open Sodium Chloride (Normal Saline) 10 ml IV ASDIRECTED PRN PRN Reason: IV Use Discontinued Medications Benzocaine/Menthol (Dermoplast Pain Relief 20%-0.5% [place]) Confirm Administered Dose 78 gm .ROUTE .STK-MED ONE Stop: 02/11/20 03:11 Magnesium Sulfate 4 gm/ Premix 100 mls @ 300 mls/hr IV BOLUS ONE Stop: 02/10/20 16:35 Last Admin: 02/10/20 17:54 Dose: 300 mls/hr
--- NOTE | 2020-02-11 10:14 | PCM.PNPP ---
- General Info Date of Service: 02/11/20 Admission Dx/Problem (Free Text): Admission Diagnosis/Problem Admission Diagnosis/Problem Hypertension, condition or complication Functional Status: Reports: Pain Controlled, Tolerating Diet, Urinating - Review of Systems General: Reports: Fatigue HEENT: Reports: No Symptoms Pulmonary: Reports: No Symptoms Cardiovascular: Reports: No Symptoms Gastrointestinal: Reports: Nausea Genitourinary: Reports: No Symptoms Musculoskeletal: Reports: No Symptoms Skin: Reports: No Symptoms Neurological: Reports: No Symptoms Psychiatric: Reports: No Symptoms - General Info Date of Service: 02/11/20 - Patient Data Vital Signs - Most Recent: Last Vital Signs Temp 97.6 F 02/11/20 09:00 Pulse 58 L 02/11/20 09:15 Resp 18 02/11/20 09:00 BP 114/66 02/11/20 09:15 Pulse Ox 97 02/11/20 09:00 Weight - Most Recent: 156 lb 8 oz I&O - Last 24 Hours: Intake & Output 02/10/20 02/11/20 02/11/20 22:59 06:59 14:59 Intake Total 312 789 Output Total 500 650 Balance -188 139 Lab Results - Last 24 Hours: Laboratory Results - last 24 hr 02/10/20 02/10/20 02/10/20 Range/Units 16:38 17:04 17:04 WBC 12.99 H (4.0-11.0) K/uL RBC 5.08 (4.30-5.90) M/uL Hgb 13.2 (12.0-16.0) g/dL Hct 41.6 (36.0-46.0) % MCV 81.9 (80.0-98.0) fL MCH 26.0 L (27.0-32.0) pg MCHC 31.7 (31.0-37.0) g/dL RDW Std Deviation 48.7 (28.0-62.0) fl RDW Coeff of Aureliano 16 H (11.0-15.0) % Plt Count 507 H (150-400) K/uL MPV 9.60 (7.40-12.00) fL Nucleated RBC % 0.0 /100WBC Nucleated RBCs # 0 K/uL Sodium 138 (136-145) mmol/L Potassium 3.9 (3.5-5.1) mmol/L Chloride 102 (98-107) mmol/L Carbon Dioxide 24.9 (21.0-32.0) mmol/L BUN 13 (7.0-18.0) mg/dL Creatinine 0.6 (0.6-1.0) mg/dL Est Cr Clr Drug Dosing 113.01 mL/min Estimated GFR (MDRD) > 60.0 ml/min Glucose 86 (74-106) mg/dL Uric Acid 4.2 (2.6-7.2) mg/dL Calcium 9.5 (8.5-10.1) mg/dL Magnesium (1.8-2.4) mg/dL Total Bilirubin 0.2 (0.2-1.0) mg/dL AST 23 (15-37) IU/L ALT 33 (14-63) IU/L Alkaline Phosphatase 120 H (46-116) U/L Total Protein 8.2 (6.4-8.2) g/dL Albumin 3.4 (3.4-5.0) g/dL Globulin 4.8 H (2.6-4.0) g/dL Albumin/Globulin Ratio 0.7 L (0.9-1.6) Urine Color YELLOW Urine Appearance CLEAR Urine pH 6.5 (5.0-8.0) Ur Specific [place] 1.015 (1.001-1.035) Urine Protein NEGATIVE (NEGATIVE) mg/dL Urine Glucose (UA) NEGATIVE (NEGATIVE) mg/dL Urine Ketones NEGATIVE (NEGATIVE) mg/dL Urine Occult Blood TRACE-INTACT H (NEGATIVE) Urine Nitrite NEGATIVE (NEGATIVE) Urine Bilirubin NEGATIVE (NEGATIVE) Urine Urobilinogen 1.0 (<2.0) EU/dL Ur Leukocyte Esterase NEGATIVE (NEGATIVE) Urine RBC 1-2 (0-2/HPF) Urine WBC 0-1 (0-5/HPF) Ur Epithelial Cells RARE (NONE-FEW) Urine Bacteria RARE (NEGATIVE) 02/10/20 02/11/20 Range/Units 22:32 04:26 WBC (4.0-11.0) K/uL RBC (4.30-5.90) M/uL Hgb (12.0-16.0) g/dL Hct (36.0-46.0) % MCV (80.0-98.0) fL MCH (27.0-32.0) pg MCHC (31.0-37.0) g/dL RDW Std Deviation (28.0-62.0) fl RDW Coeff of Aureliano (11.0-15.0) % Plt Count (150-400) K/uL MPV (7.40-12.00) fL Nucleated RBC % /100WBC Nucleated RBCs # K/uL Sodium (136-145) mmol/L Potassium (3.5-5.1) mmol/L Chloride (98-107) mmol/L Carbon Dioxide (21.0-32.0) mmol/L BUN (7.0-18.0) mg/dL Creatinine (0.6-1.0) mg/dL Est Cr Clr Drug Dosing mL/min Estimated GFR (MDRD) ml/min Glucose (74-106) mg/dL Uric Acid (2.6-7.2) mg/dL Calcium (8.5-10.1) mg/dL Magnesium 6.0 H 6.5 H (1.8-2.4) mg/dL Total Bilirubin (0.2-1.0) mg/dL AST (15-37) IU/L ALT (14-63) IU/L Alkaline Phosphatase (46-116) U/L Total Protein (6.4-8.2) g/dL Albumin (3.4-5.0) g/dL Globulin (2.6-4.0) g/dL Albumin/Globulin Ratio (0.9-1.6) Urine Color Urine Appearance Urine pH (5.0-8.0) Ur Specific [place] (1.001-1.035) Urine Protein (NEGATIVE) mg/dL Urine Glucose (UA) (NEGATIVE) mg/dL Urine Ketones (NEGATIVE) mg/dL Urine Occult Blood (NEGATIVE) Urine Nitrite (NEGATIVE) Urine Bilirubin (NEGATIVE) Urine Urobilinogen (<2.0) EU/dL Ur Leukocyte Esterase (NEGATIVE) Urine RBC (0-2/HPF) Urine WBC (0-5/HPF) Ur Epithelial Cells (NONE-FEW) Urine Bacteria (NEGATIVE) Med Orders - Current: Current Medications Acetaminophen (Tylenol Extra Strength) 1,000 mg PO Q4H PRN PRN Reason: Pain Calcium Gluconate (Calcium Gluconate) 1 gm IV ASDIRECTED PRN PRN Reason: respiratory distress Hydralazine HCl (Apresoline) 10 mg IVPUSH Q20M PRN PRN Reason: Hypertension Magnesium Sulfate (Magnesium Sulfate In Water Premix) 20 gm in 500 mls @ 50 mls /hr IV ASDIRECTED [facility] Last Admin: 02/11/20 04:12 Dose: 2 gm/hr, 50 mls/hr Lactated Ringer's (Ringers, Lactated) 1,000 mls @ 5 mls/hr IV ASDIRECTED [facility] Last Admin: 02/10/20 17:54 Dose: 5 mls/hr Ibuprofen (Motrin) 600 mg PO Q6H PRN PRN Reason: Pain Labetalol HCl (Normodyne) 20 mg IVPUSH Q10M PRN; Protocol PRN Reason: Hypertension Last Admin: 02/10/20 18:28 Dose: 40 mg Labetalol HCl (Normodyne) 200 mg PO BID [facility] Last Admin: 02/11/20 09:15 Dose: 200 mg Sodium Chloride (Saline Flush) 10 ml FLUSH ASDIRECTED PRN PRN Reason: Keep Vein Open Sodium Chloride (Saline Flush) 2.5 ml FLUSH ASDIRECTED PRN PRN Reason: Keep Vein Open Sodium Chloride (Normal Saline) 10 ml IV ASDIRECTED PRN PRN Reason: IV Use Discontinued Medications Benzocaine/Menthol (Dermoplast Pain Relief 20%-0.5% [place]) Confirm Administered Dose 78 gm .ROUTE .STK-MED ONE Stop: 02/11/20 03:11 Magnesium Sulfate 4 gm/ Premix 100 mls @ 300 mls/hr IV BOLUS ONE Stop: 02/10/20 16:35 Last Admin: 02/10/20 17:54 Dose: 300 mls/hr - Infant Interaction Infant Disposition, : Not Applicable Support Person: - Exam General: Alert, Oriented, Lethargic HEENT: Pupils Equal, Pupils Reactive, Mucous Membr. Moist/[place] Neck: Supple Lungs: Clear to Auscultation, Normal Respiratory Effort Cardiovascular: Regular Rate, Regular Rhythm GI/Abdominal Exam: Normal Bowel Sounds, Soft, Non-Tender, No Organomegaly, No Distention Extremities: Normal Inspection, Normal Range of Motion, Non-Tender, No Pedal Edema, Normal Capillary Refill Skin: Warm, Dry, Intact Neurological: No New Focal Deficit, Normal Gait, Normal Speech, Normal Tone, Strength Equal Bilateral, Reflexes Equal Bilateral, Sensation Intact Psy/Mental Status: Alert, Normal Affect, Normal Mood - Problem List & Annotations (1) Preeclampsia in period SNOMED Code(s): 271214793, 362911085 Code(s): O14.95 - UNSPECIFIED PRE-ECLAMPSIA, COMPLICATING THE PUERPERIUM Status: Acute Priority: High Current Visit: Yes - Problem List Review Problem List Initiated/Reviewed/Updated: Yes - Assessment Assessment:: Sunitha is a 34 yo female that was admitted inpatient from clinic visit yesterday for critical hypertension consistent with pre-eclampsia with severe features (BPs 190s/90s, CÁRDENAS, visual changes). S/P 1.5 weeks ago. Admitted and supervised by [facility] Dr. Lundberg. 60 mg IV labetolol + 4g mag sulf bolus with 2g mag sulf maintenance dose upon admission. Admission labs stable. Started 200 mg PO labetolol BID at 2100 last night, second dose given at 9 am this morning. BPs 110s/60s, HR 71. CBC, CMP, mag levels pending. To D/C IV mag sulf at [id number] today and continue to monitor for effectiveness of PO labetolol. Dr. Macias notified and to round on patient this afternoon to assess readiness for discharge. - Plan Plan:: Status post 01/30/20 complicated by gestational hypertension preeclampsia Patient is admitted, [facility] labs. Begin magnesium prophylaxis and begin antihypertensive regimen (protocol) to help normalize blood pressures, then will transition to oral antihypertensives. Monitor urine output and weight. Patient agrees to plan of care. Anesthesia had to be called to obtain iv sites due to difficulty with placement.
[2020-02-11 10:54] LABS: BLOOD UREA NITROGEN,BUN 12 mg/dL (7.0-18.0); CARBON DIOXIDE,CO2 24.7 mmol/L (21.0-32.0); CHLORIDE,CL 101 mmol/L (98-107); GLUCOSE RANDOM 103 mg/dL (74-106); SODIUM,NA 135 mmol/L (136-145)
--- NOTE | 2020-02-11 12:32 | PCM48HPAN ---
Post Anesthesia Note - EVALUATION WITHIN 48HRS OF ANESTHETIC Vital Signs in Normal Range: Yes Patient Participated in Evaluation: Yes Respiratory Function Stable: Yes Airway Patent: Yes Cardiovascular Function Stable: Yes Hydration Status Stable: Yes Pain Control Satisfactory: Yes Nausea and Vomiting Control Satisfactory: Yes Mental Status Recovered: Yes Vital Signs: Last Vital Signs Temp 36.2 C 02/11/20 11:00 Pulse 97 02/11/20 11:00 Resp 18 02/11/20 11:00 BP 101/52 L 02/11/20 11:00 Pulse Ox 97 02/11/20 11:00
[2020-02-11] MEDS ORDERED: Sodium Chloride 0.65% Nasal Spray 45 ML Bottle NAS PRN (20:43)
[2020-02-12 07:02] LABS: BLOOD UREA NITROGEN,BUN 16 mg/dL (7.0-18.0); CHLORIDE,CL 104 mmol/L (98-107); GLUCOSE RANDOM 97 mg/dL (74-106); SODIUM,NA 139 mmol/L (136-145)
[2020-02-12] MEDS: Labetalol 100 MG Tab PO SCH (09:16)
[2020-02-12 09:17] VITALS: BP 137/88; PULSE 68
--- NOTE | 2020-04-15 08:40 | DISCH ---
DATE OF DISCHARGE: 02/12/2020 PRIMARY CARE PHYSICIAN: Michelle Lundberg M.D. This patient is . She was admitted by Dr. Lundberg for monitoring of high blood pressure. She is status post section. The patient was started on mag sulfate and labetalol for her high blood pressures. The blood pressure stabilized over the next few days and magnesium sulfate is stopped and the patient was ambulatory and doing well and she was discharged with normal blood pressures on labetalol. She was placed on Procardia 60 mg XL, and she is to be followed in the office in 1 week for further evaluation of her blood pressure. LAY / JEFE /[id number]
== END 2020-02-12 11:38 | disposition home or self-care (01) | DRG 776 ==
LOC: MW.OB 16:07
PROVIDERS: ADMIT Obstetrics & Gynecology; ATTEND Obstetrics & Gynecology
DX: O14.95 Unspecified pre-eclampsia, complicating the puerperium (principal); Z79.899 Other long term (current) drug therapy
CPT/HCPCS: 36410; 36415; 80053; 81001; 83735; 84550; 85007; 85027; A9270-GY; J3475; J3490; J7120